=== PATIENT | male | born 1995 | race Caucasian/White ===

== ENCOUNTER 2016-12-05 16:29 | Observation (INO) | payer OTHER ==
[2016-12-05] MEDS ORDERED: NS 1,000 ML IV ONE (16:39)
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
[2016-12-05 16:52] LABS: % IMMATURE GRANULYOCYTES 0.2 % (0.0-1.1); ABSOLUTE IMMATURE GRANULOCYTES 0.02 10^3/uL (0.00-0.10); ADD DIFF? NO; ADD MORPH? NO; ADD SCAN? NO; ATYPICAL LYMPHOCYTE FLAG 0 (0-99); FRAGMENT RBC FLAG 0 (0-99); HEMOGLOBIN 16.3 g/dL (13.7-17.5); LEFT SHIFT FLG 0 (0-99); LIPEMIA HEMOLYSIS FLAG 90 (0-99); MEAN CELL HEMOGLOBIN 32.1 pg (27.9-34.1); MEAN CELL HEMOGLOBIN CONCENTR. 34.7 g/dL (32.4-36.7); MEAN CELL VOLUME 92.7 fL (81.5-99.8); MEAN PLATELET VOLUME 9.9 fL (8.7-11.7); PLATELET CLUMPS FLAG 0 (0-99); PLATELET COUNT 247 10^3/uL (150-400); RED BLOOD CELL COUNT 5.07 10^6/uL (4.40-6.38); RED CELL DISTRIBUTION WIDTH 12.1 % (11.5-15.2)
[2016-12-05 16:58] LABS: INR 1.02 (0.83-1.16); PROTIME(PATIENT) 13.3 SEC (12.0-15.0)
[2016-12-05 16:59] LABS: APTT 24.6 SEC (23.0-38.0)
[2016-12-05] MEDS ORDERED: ONDANSETRON 4 MG/2 ML VIAL ONE (16:59)
[2016-12-05] MEDS ORDERED: CEFAZOLIN 1 GM/DEXTROSE/50 ML BAG IV ONE (17:00)
[2016-12-05] MEDS ORDERED: IOPAMIDOL (ISOVUE-300) 100 ML BTL IV ONE ×2 (17:05→17:13)
[2016-12-05 17:08] LABS: ANION GAP 15 mEq/L (8-16); CALCIUM 9.9 mg/dL (8.5-10.4); CARBON DIOXIDE 26 mEq/l (22-31); CHLORIDE 101 mEq/L (97-110); CREATININE 1.3 mg/dL (0.7-1.3); ETHANOL SERUM < 10 mg/dL (0-10); GLOMERULAR FILTRATION RATE > 60; GLUCOSE 102 mg/dL (70-100); POTASSIUM 4.4 mEq/L (3.5-5.2); SODIUM 142 mEq/L (134-144)
[2016-12-05] MEDS ORDERED: ONDANSETRON 4 MG/2 ML VIAL IVP ONE (17:10)
[2016-12-05] MEDS ORDERED: ceFAZolin 2 GM/DEXTROSE 100 ML IV ONE (17:10)
[2016-12-05 18:17] LABS: COLOR PALE YELLOW; LEUKOCYTE ESTERASE,URINE NEGATIVE (NEGATIVE); NITRITE,URINE NEGATIVE (NEGATIVE)
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
[2016-12-05] MEDS ORDERED: HYDROmorphONE/DILAUDID 1 MG/ML SYR IVP PRN (20:20)
[2016-12-05] MEDS ORDERED: NS 1,000 ML IV SCH (20:30)
[2016-12-05] MEDS ORDERED: LIDOCAINE 1% 30 ML SDV ONE (22:03)
[2016-12-05] MEDS ORDERED: BUPIVACAINE 0.5% 30 ML SDV ONE (22:03)
[2016-12-05] MEDS ORDERED: MIDAZOLAM 2 MG/2 ML VIAL ONE (22:14)
[2016-12-05] MEDS ORDERED: BACITRACIN 50,000 UNITS/10 ML SYR IRR ONE (22:22)
[2016-12-05] MEDS ORDERED: ONDANSETRON 4 MG/2 ML VIAL IVP PRN (23:16)
[2016-12-05] MEDS ORDERED: LR 1,000 ML IV SCH (23:30)
[2016-12-05] MEDS ORDERED: ACETAMINOPHEN 325 MG TAB PO SCH (23:30)
--- NOTE | 2016-12-05 23:36 | POSTOPPROG ---
Post Op Note Date of Operation: 12/05/16 Surgeon: Timbo Giles Anesthesia: LMA Pre-op Diagnosis: traumatic neck and mediasteinal injury with pneumomediasteinum Post-op Diagnosis: traumatic neck and mediasteinal injury with pneumomediasteinum Indication: traumatic neck and mediasteinal injury with pneumomediasteinum Procedure: exploration/debridement,irrigation,drain placement & closure of neck wound Findings: traumatic neck and mediasteinal injury with pneumomediasteinum Inf/Abcess present in the surg proc area at time of surgery?: No EBL: Minimal Complications: none Specimen(s): none
[2016-12-06] MEDS: KETOROLAC 30 MG/1 ML SDV IVP SCH ×2 (00:22→04:58)
[2016-12-06] MEDS: ACETAMINOPHEN 500 MG TAB PO SCH ×2 (00:30→08:59)
[2016-12-06] MEDS: ceFAZolin 2 GM/DEXTROSE 100 ML IV SCH ×2 (00:32→04:58)
--- NOTE | 2016-12-06 01:46 | GOP ---
[f rep st] OPERATIVE REPORT DATE OF OPERATION: 12/05/2016 SURGEON: Timbo iGles MD ANESTHESIA: General anesthesia by laryngeal mask. PREOPERATIVE DIAGNOSIS: 1. Traumatic neck and mediastinal injury with pneumomediastinum. 2. Chin laceration. POSTOPERATIVE DIAGNOSIS: 1. Traumatic neck and mediastinal injury with pneumomediastinum. 2. Chin laceration. PROCEDURE PERFORMED: 1. Exploration, debridement, irrigation, drain placement, and closure of neck wound. 2. Closure of chin wound. FINDINGS: 1. Traumatic neck and mediastinal injury with transection of the clavicular head of the sternocleidomastoid with traumatic blunt dissection into the anterior mediastinum with pneumomediastinum but without vascular injury. 2. Superficial laceration, chin. ESTIMATED BLOOD LOSS: Minimal. INDICATIONS: 1. Traumatic neck and mediastinal injury with pneumomediastinum. 2. Chin laceration. DESCRIPTION OF PROCEDURE: The patient was placed on the operating table in supine position. His arms were at his sides. He was placed under general anesthesia by laryngeal mass. Subscapular roll was placed. The donut was placed behind his head and his neck was slightly extended. The neck was prepped with Betadine and a sterile field was developed. Note is made the chin had to be shaved. A surgical time-out was carried out and agreed to by all members of the operative team. The chin laceration was approached first. This was closed with 2 vertical mattress sutures of #4-0 Prolene. The neck wound was now approached. It was a laceration that goes anteriorly through the midline to laterally in the neck in a horizontal direction approximately 3 fingerbreadths above the clavicle. The platysma has been traumatically divided. Through the wound, which slightly gapes, the sternocleidomastoid can be identified. As the lower flap was carefully retracted, the transection of the clavicular head of the sternocleidomastoid was identified. There was a large tract approximately an inch in diameter, which goes down into the central mediastinum. There was no active bleeding. There were no palpable foreign bodies. He was irrigated with a Simpulse that had bacitracin in it. A 7 flat TAZ drain was placed to the depths of the traumatic dissection and led out through a separate stab incision. The drain was secured with a suture of # 3-0 silk. Using 2-0 Vicryl, the sternal head of the sternocleidomastoid was reapproximated. The platysma was now closed with interrupted simple sutures of #3-0 Vicryl. Skin was closed with alec. Sterile dressing was applied. Patient was transferred to recovery in stable and satisfactory condition. Note is made the drain had been hooked to bulb suction. Chest x-ray obtained in recovery showed no pneumothorax and the drain in good position. /[id number]/MODL MTDD
[2016-12-06 03:51] VITALS: TEMP 98.3
[2016-12-06 05:51] LABS: % IMMATURE GRANULYOCYTES 0.6 % (0.0-1.1); ABSOLUTE IMMATURE GRANULOCYTES 0.04 10^3/uL (0.00-0.10); ADD DIFF? NO; ADD MORPH? NO; ADD SCAN? NO; ATYPICAL LYMPHOCYTE FLAG 0 (0-99); FRAGMENT RBC FLAG 0 (0-99); HEMATOCRIT 44.1 % (40.0-51.0); HEMOGLOBIN 15.1 g/dL (13.7-17.5); LEFT SHIFT FLG 0 (0-99); LIPEMIA HEMOLYSIS FLAG 90 (0-99); MEAN CELL HEMOGLOBIN 31.9 pg (27.9-34.1); MEAN CELL HEMOGLOBIN CONCENTR. 34.2 g/dL (32.4-36.7); MEAN CELL VOLUME 93.2 fL (81.5-99.8); MEAN PLATELET VOLUME 10.2 fL (8.7-11.7); PLATELET CLUMPS FLAG 0 (0-99); PLATELET COUNT 186 10^3/uL (150-400); RED BLOOD CELL COUNT 4.73 10^6/uL (4.40-6.38); RED CELL DISTRIBUTION WIDTH 11.9 % (11.5-15.2)
[2016-12-06 08:20] VITALS: BP 119/71; PULSE 68; RESP 18; O2SAT 97
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
== END 2016-12-06 11:50 | disposition home or self-care (01) ==
LOC: EDUNIT# → F3N 12-06
PROVIDERS: ADMIT Surgery; ATTEND Surgery
DX: S11.81XA Laceration without foreign body of other specified part of neck, initial encounter (principal); S27.893A Laceration of other specified intrathoracic organs, initial encounter; T79.7XXA Traumatic subcutaneous emphysema, initial encounter; S80.212A Abrasion, left knee, initial encounter; S01.81XA Laceration without foreign body of other part of head, initial encounter; V13.4XXA Pedal cycle driver injured in collision with car, pick-up truck or van in traffic accident, initial encounter; Y92.414 Local residential or business street as the place of occurrence of the external cause; Y93.55 Activity, bike riding
CPT/HCPCS: 12011; 21899; 70450; 70498; 71010; 71260; 72125; 72129; 72132; 74177; G0378; 82947-QW; 96365; G0480; J0171; J0690; J1885; J2250; J2405; Q9967

== ENCOUNTER → 2017-05-28 | Outpatient (CLI) | payer OTHER | LOC: FLAB 14:38 | PROVIDERS: ATTEND Physician Assistant | DX: S59.901A Unspecified injury of right elbow, initial encounter (principal) ==

== ENCOUNTER 2017-06-16 21:05 | Emergency (ER) | payer OTHER ==
--- NOTE | 2017-06-16 22:03 | EDPHY ---
H & P Stated Complaint: Laceration L middle finger. HPI/ROS: HPI CHIEF COMPLAINT: Laceration left hand middle digit. HISTORY OF PRESENT ILLNESS: This patient very pleasant 22-year-old male otherwise healthy no significant medical history tells me he is up-to-date on shots he presents to the emergency room with a laceration to the distal aspect palmar side left hand middle finger. He was cutting vegetables. He states that the knife slipped and hit the distal aspect of his left middle finger. He sustained a 3 cm horizontal laceration. No other injuries. He is neurovascular intact no tendon involvement or involvement. Past Medical History: No significant medical history Past Surgical History: No significant surgical history Social History: Denies daily use of drugs alcohol tobacco products. Family History: Noncontributory ROS REVIEW OF SYSTEMS: A comprehensive 10 point review of systems is otherwise negative aside from elements mentioned in the history of present illness. Exam Constitutional triage nursing summary reviewed, vital signs reviewed, awake/ alert. Eyes normal conjunctivae and sclera, EOMI, PERRLA. HENT normal inspection, atraumatic, moist mucus membranes, no epistaxis, neck supple/ no meningismus, no raccoon eyes. Respiratory clear to auscultation bilaterally, normal breath sounds, no respiratory distress, no wheezing. Cardiovascular rate normal, regular rhythm, no murmur, no edema, distal pulses normal. Gastrointestinal soft, non-tender, no rebound, no guarding, normal bowel sounds, no distension, no pulsatile mass. Genitourinary no CVA tenderness. Musculoskeletal no midline vertebral tenderness, full range of motion, no calf swelling, no tenderness of extremities, no meningismus, good pulses, neurovascularly intact. Skin left middle finger: Palmar side, distal aspect of the left middle finger. 3 cm horizontal laceration present. No arterial injury. No tendon involvement. Good cap refill. Warm extremity. Neurovascular intact. Full range of motion. pink, warm, & dry, no rash, skin atraumatic. Neurologic awake, alert and oriented x 3, AAOx3, moves all 4 extremities equally, motor intact, sensory intact, CN II-XII intact, normal cerebellar, normal vision, normal speech. Psychiatric normal mood/affect. Heme/Lymph/Immune no lymphadenopathy. Differential Diagnosis: Includes but is not limited to in a particular order finger laceration, hand laceration, soft tissue injury Medical Decision Making: Plan for this patient washout his wound cleaned copiously, explored for foreign bodies. And then repair laceration Re-evaluation: Laceration Repair Procedure: Verbal Consent was obtained, Under sterile conditions, The patient had lidocaine with epinephrine used approximately 3ccs to local anesthetize the 3 cm horizontally oriented left middle finger laceration Laceration. The wound was copiously irrigated with sterile fluid, the wound was explored for foreign bodies there were none visualized, the wound was explored with a sterile glove to the base. There are no deep structures involved, including no arterial injury. THREE 6.0 PROLENE interrupted Sutures were placed in this patient's laceration. He had good close approximation of the wound edges. He Tolerated this well. Patient understands do have his sutures out 12-14 days. Watch closely for infection. Return to the ER for any worsening symptoms questions or concerns. Source: Patient - Personal History Current Tetanus/Diphtheria Vaccine: Unsure Current Tetanus Diphtheria and Acellular Pertussis (TDAP): Unsure - Medical/Surgical History Hx Asthma: No Hx Chronic Respiratory Disease: No Hx Diabetes: No Hx Cardiac Disease: No Hx Renal Disease: No Hx Cirrhosis: No Hx Alcoholism: No Hx HIV/AIDS: No Hx Splenectomy or Spleen Trauma: No Other PMH: Internal repair to laceration on neck. - Social History Smoking Status: Never smoked Constitutional: Initial Vital Signs Temperature (C) 36.8 C 06/16/17 21:29 Heart Rate 58 L 06/16/17 21:29 Respiratory Rate 18 06/16/17 21:29 Blood Pressure 139/96 H 06/16/17 21:29 O2 Sat (%) 98 06/16/17 21:29 Allergies/Adverse Reactions: "ALL NUTS" Allergy (Severe, Uncoded 06/16/17 21:32) Swelling/neck,face,throat Home Medications: Medication Instructions Recorded NK [No Known Home Meds] 06/16/17 Departure - Departure Disposition: Home, Routine, Self-Care Clinical Impression: Laceration Condition: Good Instructions: Laceration (ED), Care For Your Stitches (ED) Additional Instructions: 1. Protect your finger. 2. Sutures need to be removed in 12-14 days. 3. Watch for signs of infection this redness drainage, pus, swelling, pain. Referrals: Nando Barajas MD [Primary Care Provider] - As per Instructions
[2017-06-16 22:38] VITALS: BP 133/88; PULSE 71; RESP 16; TEMP 98.1; O2SAT 94
== END 2017-06-16 22:36 | disposition home or self-care (01) ==
PROC: 0HQGXZZ Repair Left Hand Skin, External Approach (ICD-10-PCS; principal; 2017-06-16)
DX: S61.213A Laceration without foreign body of left middle finger without damage to nail, initial encounter (principal); W26.0XXA Contact with knife, initial encounter; Y99.8 Other external cause status; Y93.G1 Activity, food preparation and clean up
CPT/HCPCS: L3925